=== PATIENT | male | born 1930 | race Caucasian/White ===

== ENCOUNTER → 2016-12-02 | Outpatient (CLI) | payer MEDICARE ==
[~2016-12-02] MED LIST: 'PARAFON FORTE500 M1 PO; ASPIR LOW81 MG PO; ASPIRIN81 M1 PO; CARAFATE1 G1 PO; COENZYME Q-1030 MG PO; COLACE100 MG PO; COLACE100 MG/10 PO; COUMADIN4 M1 PO; DIOVAN HCT 25 M1 TA1 PO; DIOVAN320 MG PO; FLECTOR1.3% TP; FLOMAX0.4 MG PO; HYDROCODONE BIT1 T11 PO; ISOSORBIDE DINI30 MG PO; LISINOPRIL5 MG PO; LOTREL 10 MG-401 CA1 PO; LUTEIN-ZEAXANT1 EACH PO; MULTI VITAMIN W PO; MULTI VITAMINS1 TAB PO; NIFEDIPINE30 MG PO; NIZORAL 2%15 GM PO; PERCOCET 325 MG1 TA3 PO; PREVISION PO; PROTONIX40 MG PO; TENORMIN25 MG PO; VYTORIN 10 MG-21 TAB PO; XARELTO10 PO
== END | disposition home or self-care (01) ==
LOC: LAB 08:46
DX: N18.4 Chronic kidney disease, stage 4 (severe) (principal); D63.1 Anemia in chronic kidney disease; E55.9 Vitamin D deficiency, unspecified

== ENCOUNTER → 2017-01-13 | Outpatient (CLI) | payer MEDICARE ==
[2017-01-13 12:05] LABS: ALBUMIN 3.3 gm/dl (3.1-4.5); BILIRUBIN, TOTAL 0.3 mg/dl (0.2-1.0); POTASSIUM 4.5 mmol/L (3.5-5.1)
== END ==
LOC: LAB 11:13
PROVIDERS: Internal Medicine
DX: Z76.89 Persons encountering health services in other specified circumstances (principal)

== ENCOUNTER 2017-05-15 10:17 | Inpatient (IN) | payer MEDICARE ==
[2017-05-15] VITALS (9 sets, daily range): BP systolic 125–161; BP diastolic 61–104
[~2017-05-15] VITALS: Ht 170.1 cm; Wt 66.7 kg
--- NOTE | ~2017-05-15 | PR ---
[place], [place] PROGRESS NOTE NAME: KERRY BEGUM JR UNIT #: [id number] ROOM: 508 DOCTOR: IVIS IRWIN MD BIRTHDATE: [birth year] DOS: 05/18/2017 PULMONARY FOLLOWUP SUBJECTIVE: The patient has been noted comfortable at this time, using the BiPAP this morning and 40% oxygen, setting of 14/10. OBJECTIVE: VITAL SIGNS: Recorded, shows temperature remains normal, respiratory rate 20, heart rate 70, blood pressure 153/74. Pulse oxygen saturation 40% oxygen with BiPAP was 98% saturation. HEENT: No new changes. NECK: Supple. CARDIOVASCULAR: S1, S2 audible. LUNGS: The patient was noted without any wheezing or crackles at the present time. ABDOMEN: Soft, nontender. LABORATORY DATA: ESR noted as 89, which was mildly elevated. CRP was noted, elevated 17.10. Remaining workup for the connective tissue disorder was pending. IMPRESSION AND PLAN: The patient with recurrent acute severe hypoxic respiratory failure with ground-glass opacity, bilateral pulmonary infiltration vary, differential remains in consideration, which has been treated including for pulmonary infection with the antibiotics and BiPAP. The patient seemed to be noted stable at this time, current ongoing medical illnesses. Antibiotics to be continued for this patient. Possible empirical use of corticosteroids will be considered maybe in the next 24 hours if the finding remains persistent. Obtain PA and lateral chest x-ray to assess progression of the current interstitial lung disease and infiltration. ADDITIONAL TREATMENT: Continue all other supportive care as well. Monitor labs, which has been sent for patient's connective tissue disorder and others. Acute kidney injury has been managed by the Nephrology services as well. [place], [place] PROGRESS NOTE NAME: KERRY BEGUM JR UNIT #: [id number] ROOM: 508 DOCTOR: IVIS IRWIN MD BIRTHDATE: [birth year] IVIS OCHOA MD CM:PNTRANS [id number] IVIS ARGUETA MD 05/19/17 005 interface
--- NOTE | ~2017-05-15 | CON ---
[place], [place] REPORT OF CONSULTATION NAME: KERRY BEGUM JR UNIT #: [id number] ROOM: 508 DOCTOR: MP SANDOVAL MD BIRTHDATE: [birth year] DOS: 05/17/2017 HISTORY OF PRESENT ILLNESS: The patient was consulted for cardiac evaluation for possible hip surgery. This is an 87-year-old elderly patient who has been admitted to the hospital service on 05/15/2017. The patient is unable to give any history. Most of the information is obtained from the chart. He lives at home, fell down at his home, has been found by his and later on found to have significant pain in the right hip area. Oxygen saturation was only 82% on room air. Dr. Zepeda has been consulted. The patient has been currently getting oxygen supplementation. The patient is supposed to have a hip fracture possible. Review of systems cannot be completed because of inability to have a conversation. 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 PAST SURGICAL HISTORY: Pacemaker insertion. FAMILY HISTORY: Unknown. MEDICATIONS: The patient is on atenolol, nifedipine, Lasix, Imdur, Flomax, ferrous sulfate. DRUG ALLERGIES: XARELTO AND PENICILLIN. REVIEW OF SYSTEMS: Unobtainable. PHYSICAL EXAMINATION: VITAL SIGNS: Blood pressure today is 150/70. Paced rhythm. HEENT: Unremarkable. NECK: Supple. No JVD. LUNGS: Clear. HEART: Sounds are regular. NEUROLOGIC: Difficult to assess. LABORATORY DATA: White count was elevated to be 25,000 on 05/15/2017. Creatinine is 1.8. Urine shows more than 100,000 gram-negative bacilli. Chest x-ray, no evidence of acute major process. IMPRESSION: The patient readmitted to the hospital with a closed right hip fracture, fall at home; history of coronary artery permanent pacemaker. RECOMMENDATIONS: We will get an echocardiogram prior to the anticipated surgery. The patient is at higher risk because of the comorbid situation. Continue the beta blockers as ordered and we will followup. [place], [place] REPORT OF CONSULTATION NAME: KERRY BEGUM JR UNIT #: [id number] ROOM: 508 DOCTOR: MP SANDOVAL MD BIRTHDATE: [birth year] MP SANDOVAL MD CM:CONSTR:REPORT OF CONSULTATION 0832 05/17/17 0907 interface
--- NOTE | ~2017-05-15 | CON ---
[place], [place] REPORT OF CONSULTATION NAME: KERRY BEGUM JR UNIT #: [id number] ROOM: 508 DOCTOR: PATY HORVATH MD BIRTHDATE: [birth year] DOS: 05/17/2017 HISTORY OF PRESENT ILLNESS: This is an 87-year-old -[place] man with a history of coronary artery disease. He had a diagnostic heart cath done in November 2015, which demonstrated normal LV systolic function and 20% stenosis of the circumflex and 40% in right coronary artery with an 80% stenosis in the proximal right coronary artery. LAD had mild disease. RCA was little too of complex relation to treat with intervention, therefore was not done. He has a history of atrial fibrillation and also had a pacemaker implanted in 2006. He has hyperlipidemia, essential hypertension, chronic anemia and has had gastric ulcers. He apparently fell at home because of balance problems and sustained a right subcapital fracture. MEDICATIONS: Reviewed and included atenolol, Imdur, lisinopril, nifedipine, Ranexa, ferrous sulfate. History was obtained from the who was present at the time of examination. PHYSICAL EXAMINATION: GENERAL: The patient looks a little pale. He is weak and he is not able to speak very clearly, but does not seem to be confused. VITAL SIGNS: His temperature is normal. Pulse is regular. NECK: JVP is normal. CARDIAC: He is hardly any edema of the lower extremities. LUNGS: Breath sounds are somewhat diminished with crackles in both lungs. ABDOMEN: Supple, nontender. IMPRESSION: This patient with coronary artery disease and history of atrial fibrillation and a pacemaker, had normal left ventricular systolic function. There is no evidence of cardiac decompensation. Coronary artery appear to be quiet. The right femoral head fracture. There is intermediate risk for perioperative cardiac complications for hip surgical procedure. He also has chronic kidney disease. This adds to complications as well. I Thank you for this consult. [place], [place] REPORT OF CONSULTATION NAME: SHY JRKERRY Will UNIT #: [id number] ROOM: 508 DOCTOR: PATY HORVATH MD BIRTHDATE: [birth year] PATY HORVATH MD CM:CONSTR:REPORT OF CONSULTATION 1202 05/19/17 0410 interface
--- NOTE | ~2017-05-15 | PR ---
[place], [place] PROGRESS NOTE NAME: KERRY BEGUM JR [facility] #: [id number] UNIT #: [id number] ROOM: 508 DOCTOR: GABRIELA ARGUETA MD,IVIS BIRTHDATE: [birth year] DOS: 05/17/2017 SUBJECTIVE: The patient was seen and examined on 05/17/2017. He has been currently resting on his bed. Using the oxygen supplementation with the Venturi mask, BiPAP has also been used by the patient yesterday and the last night with oxygen supplementation up to 50 rather 45%. He has been noted essentially awake at this time. Does not have good verbal communication to describe his ongoing symptom. He does not show any acute distress at the present time with shortness of breath with significant tachypnea this morning. OBJECTIVE: VITAL SIGNS: Temperature noted at 100.6 degree Fahrenheit, normal temperature, respiratory rate 18-20, heart rate 71-76, blood pressure 115/50-159/70. Intake 845 and output 385 mL. The pulse oxygen saturation with the Venturi mask with patient and the BiPAP ranging between 91-99% saturation. HEENT: Shows head was atraumatic. Eyes nonicterus. CARDIOVASCULAR: S1, S2 audible. LUNGS: The patient was noted with moderately reduced breath sounds, scattered crackles of the lungs. ABDOMEN: Soft, nontender. EXTREMITIES: Shows mild edema of bilateral lower extremity. LABORATORY DATA: CBC this morning, WBC count 18.7, hemoglobin and hematocrit normal, platelet count was normal. BMP this morning, BUN 53, creatinine 2.52, glucose 138. BUN yesterday noted at 31, creatinine 2.08 in the labs. CBC that was done yesterday showed WBC count 17.3. The CBC was noted about essentially the same. ABG that was done yesterday at 11:15 a.m. noted, pH of 7.48, pCO2 of 25.8, pO2 of 51.8 on 50% oxygen supplementation. CT scan of the chest that I ordered yesterday done without contrast was personally reviewed. The CT scan mediastinal window assessment for the patient was reviewed and it does not show any visible gross lymphadenopathy. Absence of the IV contrast that limits the mediastinal assessment. The parenchymal window assessment was done shows some motion artifact, area of ground glass opacity noted with infiltration, which was present in the left upper lobe lingula subsegment and left lower lobe. Small right pleural fluid was noted. Signaling chronic right spasticity for the patient was noted involving the right lower lobe and part of the right upper lung. IMPRESSION: The patient who has been currently admitted to the hospital. The patient noted progressive acute hypoxic respiratory failure. The differential diagnosis current finding of the CT scan would be considered with the possibility of interstitial edema related to acute progressive kidney injury and congestive heart failure. In addition, possibility of pneumonia cannot be completely excluded. Other reason for the patient's current abnormal opacity in the lungs will be considered for any interstitial lung involvement from connective tissue disorders and similar conditions. PLAN OF MANAGEMENT: The patient has been currently has been rather using the BiPAP intermittently. We will continue stabilize respiratory status with antibiotics. The patient has been ordered just kidney functions will be [place], [place] PROGRESS NOTE NAME: KERRY BEGUM JR UNIT #: [id number] ROOM: 508 DOCTOR: IVIS IRWIN MD BIRTHDATE: [birth year] continued as well. The patient has not been getting the atypical coverage with the antibiotic, which will be ordered. Order the urine for legionella antigen as well as the streptococcal antigen. All the connective tissue work disorder as well and for interstitial lung disease preliminary testing. Acute kidney injury, the patient continued to be assessed and managed by the Nephrology services. Other supportive present therapy for the patient to be continued as well. Monitoring temperature curve as well to determine the code status as well for any intervention if necessary in case of progressive worsening and decline of the respiratory status that could occur. The patient despite use of the BiPAP for potential intubation and mechanical ventilation. Other treatment plan and management as well. Usual care, supportive plan of therapies and management. Thank you for allowing me to participate in the care of this patient. IVIS OCHOA MD CM:PNTRANS [id number] IVIS ARGUETA MD 05/18/17 0019 interface
--- NOTE | ~2017-05-15 | EKG ---
[place], [place] ELECTROCARDIOGRAM REPORT NAME: KERRY BEGUM JR UNIT #: [id number] ROOM: 508 DOCTOR: GABRIELA ARGUETA MD,IVIS BIRTHDATE: [birth year] DOS: The electrocardiogram was done on 05/13/2017 for the patient. IVIS OCHOA MD CM:EKGRPT:ELECTROCARDIOGRAM REPORT [id number] 1604 IVIS ARGUETA MD
--- NOTE | ~2017-05-15 | CON ---
[place], [place] REPORT OF CONSULTATION [facility] [id number] UNIT #: [id number] ROOM: 508 DOCTOR: IVIS IRWIN MD BIRTHDATE: [birth year] DOS: 05/16/2017 PULMONARY CONSULTATION EVALUATION CONSULTATION REQUESTED BY: Hospitalist services. REASON FOR CONSULTATION: Assessment of respiratory failure. HISTORY OF PRESENT ILLNESS: This is an 87-year-old elderly male patient who has been admitted to the hospitalist services on 05/15/2017. The patient unable to give any history. All the history has been obtained essentially from review of his medical record documentation of this hospitalization and previously. The nursing notes were also reviewed as needed. The patient is an 87-year-old white male who lives at home. The patient fell down at his home. He has been found by his later on. The ambulance was called, the patient has been assessed, was complaining of significant pain in the right hip area and bearing some weight on the hip. The patient's oxygen saturation also noted at 82% on room air at rest, but the patient refused to use the oxygen supplementation. He has been brought to the hospital for further workup of the current acute respiratory symptom. The patient has been assessed with the x-rays of the hip, which was not noted adequate x-ray because of limited assessment to exclude fracture of the right femur and subcapital area. The patient has been currently getting oxygen supplementation and using it with nasal cannula. Denies any symptoms of chest pain or hemoptysis. The patient reported no symptoms of cough or any chest trauma. REVIEW OF SYSTEMS: Cannot be adequately completed because of inability to have a conversation and assessment for this patient by me. PAST MEDICAL HISTORY: 1. 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 2. History of essential hypertension. 3. Coronary artery disease and acute cardiac dysrhythmias, with pacemaker insertion. 4. History of stricture of the urinary bladder neck. 5. Past history of coronary artery disease and myocardial infarction. SOCIAL HISTORY: The patient lives at home. He denies any tobacco use, alcohol, or illicit drugs. PAST SURGICAL HISTORY: 1. Cystoscopy. 2. Pacemaker insertion. FAMILY HISTORY: Unknown. HOME MEDICATIONS: Listed as use of atenolol, vitamin D3, Vytorin, ferrous sulfate, Breo Ellipta, Lasix, Imdur, Lutein, nifedipine XL, oxygen supplementation 2 L via nasal cannula, Flomax, and other vitamins. [place], [place] REPORT OF CONSULTATION NAME: KERRY BEGUM JR UNIT #: [id number] ROOM: 508 DOCTOR: GABRIELA ARGUETA MD,[facility] BIRTHDATE: [birth year] DRUG ALLERGIES: 1. XARELTO. 2. PENICILLINS. PHYSICAL EXAMINATION: GENERAL: An 87-year-old elderly male, currently comfortably lying on the bed without any acute major distress. Height 5 feet 7 inches, weight 147 pounds, BMI 23. VITAL SIGNS: Temperature noted as 100.6 degrees Fahrenheit orally at midnight. Otherwise, temperature noted essentially normal. Respiratory rate ranges between 18-28, heart rate 79-83, blood pressure 159/70-125/67. Intake is 922 mL. Pulse oxygen saturation noted on 3 L as 90% saturation. Later, on the Venturi mask on 50%, 90%-91% saturation. HEENT: Shows head was atraumatic. Eyes nonicterus. NECK: Supple. CARDIOVASCULAR: S1, S2 audible. LUNGS: General reduction in the breath sounds in the lungs noted bilaterally. ABDOMEN: Soft and nontender. EXTREMITIES: Without any edema, clubbing, or cyanosis. CENTRAL NERVOUS SYSTEM: Examination could not be performed adequately. SKIN: No lesions or rashes. MUSCULOSKELETAL: No gross deformities. LABORATORY DATA: CBC on 05/15/2017, WBC count 25.9, hemoglobin, hematocrit, and platelet count normal, 88% segmented neutrophils. BMP yesterday, BUN 25, creatinine 1.87, glucose 137. Electrolytes were normal. The PT/PTT done yesterday and normal. X-ray of the hip is limited study, cannot rule out fracture of the femoral neck. CBC this morning, WBC count 17.3. Remaining CBC still remains normal. CMP this morning, BUN 31 and creatinine 2.08. Remaining electrolytes grossly normal. PT/INR remains normal. Urine culture noted greater than 100,000 colony-forming units of Gram-negative bacilli. Chest x-ray 1 view, does not show any acute major abnormalities except chronic elevation of the right hemidiaphragm which is an old finding. IMPRESSION: 1. The patient who has been currently admitted to the hospital noted with acute on chronic hypoxic respiratory failure, exact etiology cannot be determined 2. Leukocytosis may be related to urinary tract infection, other etiology is unclear as well. 3. The patient with history of chronic hypoxic respiratory failure and possibility of pulmonary disease, not described by the patient, but noted with the use of the medication such as Breo Ellipta and short-acting bronchodilators. 4. The patient with history of chronic kidney disease stage 3 to stage 4 with current acute component noted, most likely related to the intravascular volume depletion. PLAN OF MANAGEMENT: For the acute hypoxic respiratory failure, CT scan of the chest would be done without contrast to get more clear delineation of the pulmonary process. Monitor acute kidney injury superimposed with chronic kidney [place], [place] REPORT OF CONSULTATION NAME: KERRY BEGUM JR UNIT #: [id number] ROOM: 508 DOCTOR: GABRIELA ARGUETA MD,IVIS BIRTHDATE: [birth year] disease as well. The troponin and CPK were also noted mildly abnormal, possibility of myocardial infarction should be considered in the differential diagnosis. Other supportive plan of management to be continued as previously. The patient on BiPAP to stabilize the respiratory status. Other supportive therapy, plan of management and care plan. Usual treatment, all other supportive therapies. Make changes in the treatment based on the progression of the illness. Also ordered arterial blood gases to accurately assess the patient for the ventilatory status changes today prior to use of the BiPAP. ABG that was done just on 3 L shows pH of 7.47, pCO2 of 28.8, pO2 of 48.8. The respiratory failure has been noted progressive. Also assess the code status for the patient with the family members, determine the exact code status for further medical management. Consider assessment with Orthopedic service if not done for the patient to rule out current suspected fracture of the right hip. If the CT scan of the chest without contrast remains nonrevealing, certainly VQ scan could be done to rule out pulmonary embolism because of the progressive hypoxia. Cardiology assessment might need to be done for assessment of abnormal troponin with additional workup for possible myocardial infarction. If necessary, suggest Cardiology services. Supportive plan of therapy, care and management. IVIS OCHOA MD CM:CONSTR:REPORT OF CONSULTATION 1041 05/17/17 0150 interface
--- NOTE | 2017-05-15 10:22 | NUR ---
PATIENT'S STATES THAT THE PATIENT WAS OFFERED OXYGEN AT HOME DUE TO THE PATIENT'S PULSE OX RUNNING LOW AND THE PATIENT REFUSED THE OXYGEN AT HOME. ROMARIO SANTOS
--- NOTE | 2017-05-15 10:29 | NUR ---
PATIENT ALSO HAS SEVERAL ABRASION TO THE LEFT LOWER LEG. ROMARIO SANTOS
[2017-05-15 10:58] LABS: HEMOGLOBIN 15.7 g/dl (14.0-18.0); MEAN CORPUSCULAR HGB 30.4 pg (27.0-31.0); MEAN PLATELET VOLUME 10.3 fl (9.6-12.3); PLATELET COUNT AUTOMATED 232 10*3/uL (130-400); RED BLOOD COUNT 5.16 10*6/uL (4.50-5.90); RED CELL DISTRI WIDTH 13.6 % (0-14.5); WHITE BLOOD COUNT 25.9 10*3/uL (4.8-10.8)
[2017-05-15 11:07] LABS: ACT PARTIAL THROMBO TIME 26.3 SECONDS (20.8-31.5)
[2017-05-15 11:09] LABS: CREATININE 1.87 mg/dL (0.70-1.30); POTASSIUM 4.1 mmol/L (3.5-5.1)
[2017-05-15 11:15] LABS: TOTAL CELLS COUNTED 100 #CELLS
[2017-05-15 11:16] LABS: PLATELET SUFFICIENCY NORMAL (NORMAL)
--- NOTE | 2017-05-15 11:32 | NUR ---
PATIENT IS ALERT AND ORIENTED X3, STATES THAT HE IS HAVING PAIN IN THE RIGHT HIP SINCE THEY HAVE COMPLETED THE XRAY, STATES THAT THE PAIN IS SEVERE A 9/10 AT THIS TIME, MADE DR. TORRES AWARE OF THE PATIENT'S PAIN AT THIS TIME, CALL LIGHT IN REACH OF THE PATIENT, CONTINUING TO MONITOR THE PATIENT. ROMARIO SANTOS
[2017-05-15 11:55] LABS: TROPONIN I 0.061 ng/ml (<0.045)
--- NOTE | 2017-05-15 12:09 | NUR ---
PATIENT IS ALERT AND ORIENTED X3, PATIENT IS RESTING IN BED WITH IN THE ROOM, PATIENT STATES THAT HE GOT NO RELIEF FROM THE MEDICATION, MADE DR. TORRES AWARE OF THIS SITUATION. ROMARIO SANTOS
--- NOTE | 2017-05-15 12:25 | NUR ---
A 87, admitted to 5E, under the services of TANESHA Pate DO with a diagnosis of FALL AT HOME, LEUKOCYTOSIS, CKD, CLOSED RIGHT HIP FX. Chief complaint is FALL. Patient arrived via ambulance from ER. Monitor applied. Initial assessment completed. Vital signs taken and recorded. ATNESHA PATE DO notified of admission to the unit. Orders received. See assessment for past medical history, medications and allergies. Patient and/or family oriented to unit. visitation policy reviewed. Clothing/patient valuable form completed. VICKIE MALONE L
--- NOTE | 2017-05-15 12:38 | NUR ---
PATIENT TAKEN TO ROOM 508-1, PLACED ON THE MONITOR AND CARE TRANSFERRED TO NYDIA GREGG RN AND ROMARIO QUILES. ROMARIO SANTOS
[2017-05-15] MEDS ORDERED: CO Q-1030 M1 PO (12:42)
[2017-05-15] MEDS ORDERED: FEOSOL325 MG PO (12:43)
[2017-05-15] MEDS ORDERED: LASIX40 MG PO (12:44)
[2017-05-15] MEDS ORDERED: PRESERVISION A1 EAC2 PO (12:46)
[2017-05-15] MEDS ORDERED: VITAMIN D34000 UNIT PO (12:47)
[2017-05-15] MEDS ORDERED: BREO ELLIPTA 21 EACH INH (12:49)
[2017-05-15] MEDS ORDERED: OXYGEN NAS (12:50)
--- NOTE | 2017-05-15 12:51 | NUR ---
PT'S MED REC UPDATED PER LIST PROVIDED BY PT'S .
--- NOTE | 2017-05-15 13:29 | NUR ---
DR WRIGHT NOTIFIED OF ABRASIONS TO LEFT KNEE. STATES HE WILL PUT ORDERS FOR DRESSING CHANGED IN.
--- NOTE | 2017-05-15 14:46 | NUR ---
CALL PLACED TO , NOTIFIED OF CONSULT FOR SURGICAL CLEARENCE
--- NOTE | 2017-05-15 16:22 | NUR ---
PAIN MEIDCATION EFFECTIVE, RESTING IN BED QUIETLY NO FURTHER C/O PAIN
[2017-05-15 17:16] LABS: ABG BASE EXCESS -0.8 mmol/L (-2.0-2.0); ABG HCO3 21.1 mmol/l (22-26); ABG O2 SATURATION 88.8 % (95-97); ARTERIAL BLOOD GAS PCO2 28.8 mmHg (35-45); ARTERIAL BLOOD GAS PH 7.476 (7.35-7.45); ARTERIAL BLOOD GAS PO2 46.8 mmHg (80-90)
--- NOTE | 2017-05-15 17:30 | NUR ---
NOTIFIED OF PTS ABGS, NEW ORDER TO CONSULT DR. OCHOA
--- NOTE | 2017-05-15 17:45 | NUR ---
50% VM APPLIED. SEE ABG. RN AWARE. RN STATES DR. LAY NOTIFIED AND SAID OK FOR 50% VM. SAT 97%. HR 72.
[2017-05-15 18:11] LABS: BILIRUBIN NEGATIVE (NEGATIVE); BLOOD TRACE-INTACT (NEGATIVE); CLARITY SL CLOUDY (CLEAR); COLOR YELLOW (YELLOW); GLUCOSE NEGATIVE (NEGATIVE); KETONE NEGATIVE (NEGATIVE); LEUKO ESTERASE 2+ (NEGATIVE); NITRITE NEGATIVE (NEGATIVE); SPECIFIC GRAVITY 1.015 (1.005-1.030); UROBILINOGEN 0.2 E.U./dl (0.2-1.0)
[2017-05-15 18:17] LABS: BACTERIA 4+; WBC 51-100 wbc/hpf (0-5)
[2017-05-15 18:18] LABS: EPITHELIAL CELLS 0-2
--- NOTE | 2017-05-15 18:28 | NUR ---
CALL PLACED TO FOR CONSULT, LEFT MESSAGE ON PHONE
--- NOTE | 2017-05-15 18:30 | NUR ---
UNABLE TO CALL FOR CONSULT, MD UNAVAILABLE UNTIL 05/16/17, WILL LET KAYLEE KNOW TO CALL CONSULT ON 05/16/17 WHEN RETURNS
--- NOTE | 2017-05-15 18:30 | NUR ---
DR. OCHOA RETURNED CALL AT THIS TIME AND WAS MADE AWARE OF CONSULT
--- NOTE | 2017-05-15 20:00 | NUR ---
ASSUMED CARE OF PATIENT. ASSESSMENT COMPLETE. RESTING IN BED. O2 INTACT. DENIES FURTHER NEEDS AT THIS TIME. BED ALARM ACTIVATED. CALL LIGHT IN REACH. WILL CONTINUE TO MONITOR.
--- NOTE | 2017-05-15 21:30 | NUR ---
PT RECEIVED MORPHINE 2MG FOR PAIN RATED 8/10 IN THE HIP.
--- NOTE | 2017-05-15 21:54 | NUR ---
PT SEEMS TO BE RESTING WELL, PAIN SEEMS TO BE REDUCED. PT SLEEPING AND NOT AWAKENED. RESPIRATIONS WNL.
--- NOTE | 2017-05-15 23:25 | NUR ---
PT RECEIVED TYLENOL 650 MG AT 2327 FOR A AXILLARY FEVER OF 100.6.
[2017-05-16] VITALS: BP 148/90
--- NOTE | 2017-05-16 01:48 | NUR ---
PT'S TEMP WAS 99.9 FOLLOWING TYLENOL ADMINISTATION.
--- NOTE | 2017-05-16 02:00 | NUR ---
SLEEPING. VENTURI INTACT. NO DISTRESS NOTED. CM INTACT. BED ALARM ON. CALL LIGHT IN REACH. WILL CONTINUE TO MONITOR.
[2017-05-16 06:13] LABS: BASO # 0.1 10*3/uL (0.0-0.1); BASO % 0.3 % (0.0-1.0); EOS # 0.1 10*3/uL (0.0-0.4); EOS % 0.6 % (1.0-4.0); HEMATOCRIT 48.2 % (42.0-52.0); HEMOGLOBIN 15.6 g/dl (14.0-18.0); MEAN CORPUSCULAR HGB 31.4 pg (27.0-31.0); MEAN CORPUSCULAR HGB CONC 32.4 g/dl (33.0-37.0); MEAN PLATELET VOLUME 10.6 fl (9.6-12.3); MONO % 5.6 % (3.0-9.0); NEUT % 86.9 % (47.0-73.0); NUCLEATED RED BLOOD CELL 0.1 % (0.0-0.0); PLATELET COUNT AUTOMATED 168 10*3/uL (130-400); RED BLOOD COUNT 4.97 10*6/uL (4.50-5.90); RED CELL DISTRI WIDTH 14.5 % (0-14.5); WHITE BLOOD COUNT 17.3 10*3/uL (4.8-10.8)
[2017-05-16 06:31] LABS: INTERNATIONAL NORM RATIO 1.1 (2.0-3.5)
[2017-05-16 06:32] LABS: ALBUMIN 2.9 gm/dl (3.1-4.5); CREATININE 2.08 mg/dL (0.70-1.30); MAGNESIUM 2.8 mg/dL (1.5-2.1); PHOSPHOROUS 2.7 mg/dL (2.5-4.9); POTASSIUM 4.9 mmol/L (3.5-5.1); TOTAL PROTEIN 6.4 gm/dL (6.4-8.2)
[2017-05-16 06:38] LABS: THYROID STIM HORMONE (HS) 1.17 uIU/ml (0.358-4.75)
[2017-05-16 08:00] VITALS: BP 159/70
--- NOTE | 2017-05-16 08:24 | NUR ---
DR ALVARADO OFFICE STAFF NOTIFIED OF CONSULT FOR RIGHT FEMORAL NECK FRACTURE
--- NOTE | 2017-05-16 10:40 | NUR ---
PT GIVEN NORCO FOR PAIN R/T RIGHT HIP EXTERNAL ROTATION
[2017-05-16 11:19] LABS: ABG BASE EXCESS -1.8 mmol/L (-2.0-2.0); ABG HCO3 19.4 mmol/l (22-26); ABG O2 SATURATION 89.1 % (95-97); ARTERIAL BLOOD GAS PCO2 25.8 mmHg (35-45); ARTERIAL BLOOD GAS PH 7.489 (7.35-7.45); ARTERIAL BLOOD GAS PO2 51.8 mmHg (80-90)
--- NOTE | 2017-05-16 11:37 | NUR ---
ABG'S RETRIEVED BY RESPIRATORY. PT TRANSPORTED TO CT.
--- NOTE | 2017-05-16 11:59 | NUR ---
NORCO INEFFECTIVE TO RELIEVE PAIN, PT RESTLESS AND VISIBLY IN PAIN, ADMINISTERED MORPHINE
[2017-05-16 12:00] VITALS: BP 130/60
--- NOTE | 2017-05-16 13:26 | NUR ---
PATIENT ON BIPAP SETTINGS: 07/01 BACK UP 8, 55% FIO2.
--- NOTE | 2017-05-16 14:40 | NUR ---
PRN IV MORPHINE WAS EFFECTIVE FOR PAIN; NO DISTRESS NOTED; VISITING AT BEDSIDE.
[2017-05-16 16:00] VITALS: BP 129/64
--- NOTE | 2017-05-16 16:49 | NUR ---
PATIENT IN PAIN, GRIMACING, NODS YES WHEN ASKED IF IN PAIN, BIPAP IS IN PLACE. MEDICATED WITH PRN IV MORPHINE FOR SEVERE PAIN (RIGHT HIP IS FRACTURED).
--- NOTE | 2017-05-16 17:40 | NUR ---
PRN IV MORPHINE SOMEWHAT EFFECTIVE, PER PATIENT.
[2017-05-16 20:00] VITALS: BP 138/64
--- NOTE | 2017-05-16 20:00 | NUR ---
ASSUMED CARE OF PATIENT. ASSESSMENT COMPLETE. RESTING IN BED. BIPAP INTACT. CALL LIGHT IN REACH. WILL CONTINUE TO MONITOR.
--- NOTE | 2017-05-16 21:03 | NUR ---
BBS DIMINISHED CLEAR..PT IN NO DISTRESS PT ASLEEP SA NOT INDICATED AT THIS TIME
--- NOTE | 2017-05-16 23:22 | NUR ---
PT RECEIVED MORPHINE 2MG FOR PAIN IN HIP RATED 9/10.
[2017-05-17] VITALS: BP 123/55
--- NOTE | 2017-05-17 | NUR ---
PT IS RESTING COMFORTABLY AFTER RECEIVING MORPHINE FOR PAIN.
--- NOTE | 2017-05-17 02:00 | NUR ---
SLEEPING. BIPAP INTACT, NO DISTRESS NOTED. CALL LIGHT IN REACH. WILL CONTINUE TO MONITOR.
[2017-05-17 07:26] LABS: BASO % 0.2 % (0.0-1.0); EOS # 0.1 10*3/uL (0.0-0.4); EOS % 0.5 % (1.0-4.0); HEMATOCRIT 44.8 % (42.0-52.0); HEMOGLOBIN 14.1 g/dl (14.0-18.0); LYMPH # 1.1 10*3/uL (1.3-4.4); LYMPH % 5.8 % (27.0-41.0); MEAN CELL VOLUME 97.6 fl (80.0-94.0); MEAN CORPUSCULAR HGB 30.7 pg (27.0-31.0); MEAN CORPUSCULAR HGB CONC 31.5 g/dl (33.0-37.0); MEAN PLATELET VOLUME 11.1 fl (9.6-12.3); MONO # 1.3 10*3/uL (0.1-1.0); MONO % 6.7 % (3.0-9.0); NEUT # 16.1 10*3/uL (2.3-7.9); NEUT % 86.1 % (47.0-73.0); PLATELET COUNT AUTOMATED 157 10*3/uL (130-400); RED BLOOD COUNT 4.59 10*6/uL (4.50-5.90); RED CELL DISTRI WIDTH 14.6 % (0-14.5); WHITE BLOOD COUNT 18.7 10*3/uL (4.8-10.8)
[2017-05-17 07:47] LABS: CREATININE 2.52 mg/dL (0.70-1.30); POTASSIUM 4.8 mmol/L (3.5-5.1)
[2017-05-17 08:00] VITALS: BP 115/50
--- NOTE | 2017-05-17 09:00 | NUR ---
case management attemptes to visit with patient, patient was too ill at this time to talk, will talk with patient's family regarding discharge plans
--- NOTE | 2017-05-17 10:06 | NUR ---
PATIENT MEDICATED WITH MORPHINE FOR PAIN R LEG. PATIENT IS UNABLE TO RATE PAIN.
--- NOTE | 2017-05-17 10:32 | NUR ---
[employer] order placed with [facility]
--- NOTE | 2017-05-17 11:00 | NUR ---
PATIENT RESTING QUIETLY.
--- NOTE | 2017-05-17 11:00 | NUR ---
SPOKE WITH THIS MORNING SHE DOES NOT WISH FOR PATIENT TO HAVE ORAL MEDICATION. SHE IS CONCERNED THAT HE WILL CHOKE.
[2017-05-17 12:00] VITALS: BP 135/61
--- NOTE | 2017-05-17 12:21 | NUR ---
SHY BELTRANKERRY Will [id number] Please refer to the physician's history and physical for past medical history, comorbid conditions, and allergies. Diagnosis: FALL AT HOME LEUKOCYTOSIS CKD CLOSED R HIP FX Tan Score: 14,LOW OR NO RISK WOUND DESCRIPTIONS: Location of the wound: left knee Type of wound: skin tear Thickness: Partial Size: 1.0cm x 0.6cm x 0.1cm Tunneling: none Undermining: none Sinus Tract: none Presence of Exudate: Serosanguineous Amount: Light Color: Red Odor: None Periwound Skin Appearance: Normal Wound edges: approximated Pain (associated with wound): tender to touch How does patient state this happened? pt unable to state how this happened Location of the wound: left lower leg proximal Type of wound: skin tear Thickness: Partial Size: 4.3cm x 1.9cm x 0.1cm Tunneling: none Undermining: none Sinus Tract: none Presence of Exudate: Serosanguineous Amount: Light Color: Red Odor: None Periwound Skin Appearance: Normal Wound edges: approximated Pain (associated with wound): tender to touch How does patient state this happened? pt unable to state how this happened Location of the wound: left lower leg distal Type of wound: skin tear Thickness: Partial Size: 1.8cm x 3.0cm x 0.1cm Tunneling: none Undermining: none Sinus Tract: none Presence of Exudate: Serosanguineous Amount: Light Color: Red Odor: None Periwound Skin Appearance: Normal Wound edges: approximated Pain (associated with wound): tender to touch How does patient state this happened? unable to state how this happened Surface the patient is resting on: Position Pro SKIN PREVENTION RECOMMENDATION: 1. Pressure redistribution support surface as appropriate 2. Elevate heels 3. Remove boots/TEDS every shift and reapply 4. Head of bed 30 degrees as tolerated 5. Assess nutrition and hydration 6. Manage moisture 7. Avoid the use of containment devices while in bed 8. Use absorptive products on surfaces limit layers of linens on bed 9. Turn and reposition every 1-2 hours in bed and every 1 hour in chair as tolerated 10. Weight shifts every 15 minutes while up in chair 11. Offloading with pillows or device to keep heels elevated off bed 12. Monitor skin at least every shift 13. Inspect under medical devices twice a day WOUND TREATMENT RECOMMENDATIONS: heel raiser pro boots while in bed Would also recommend dolphin bed due to patient immobility because of the fx hip increase pain. spoke with nursing program chair to order bed once order was obtained by Dr. Jasmine
--- NOTE | 2017-05-17 12:27 | NUR ---
Spoke with Dr. Almonte regarding wound care recommendations.
--- NOTE | 2017-05-17 12:31 | NUR ---
SPOKE TO DR. TADEO REGARDING 'S CONCERN FOR HIS DIFFICULTY SWALLOWING AND THE POSSIBILITY OF HOSPICE.
--- NOTE | 2017-05-17 13:33 | NUR ---
SPEECH PATHOLOGY Orders for dysphagia evaluation received and chart review completed. Patient was unresponsive in bed, on bipap and did not arouse to stimulation presented. His was present and reported he has been in this state all morning. Due to severity of condition, assessment of swallowing was unable to be completed at this time. Will attempt again at a later time. This was discussed with patient's spouse who verbalized understanding and agreement. Thank you for this referral. COMFORT JETER [facility]-DOUBLE BACK OPERATOR
--- NOTE | 2017-05-17 15:10 | NUR ---
Received order for [facility]. contacted Valorie in admissions at [facility] and faxed referral. Gave her the phone number for the 5th floor and asked her to call after 3:30 with any questions.
[2017-05-17 16:00] VITALS: BP 146/70
--- NOTE | 2017-05-17 16:14 | NUR ---
PATIENT MOANING AT TIMES. MEDICATED WITH MORPHINE FOR PAIN.
--- NOTE | 2017-05-17 16:17 | NUR ---
HOSPICE TO COME TOMORROW MORNING TO MEET WITH AND FAMILY. THEY WILL BE IN AROUND 10-10:30 AM.
--- NOTE | 2017-05-17 17:08 | NUR ---
PATIENT RESTING QUIETLY.
--- NOTE | 2017-05-17 18:34 | NUR ---
PT WAS ORDERED AN ABG AND THE REFUSED
[2017-05-17 20:00] VITALS: BP 132/52
--- NOTE | 2017-05-17 20:00 | NUR ---
PT POX 88% ON 50% VENTURI MASK. PLACED ON BIPAP AT THIS TIME
--- NOTE | 2017-05-17 20:30 | NUR ---
PT RECEIVED MORPHINE FOR SEVERE PAIN. RATED 9/10, EXACERBATED BY MOVEMENT. RN COMFORT MEASURES USED WELL.
--- NOTE | 2017-05-17 21:44 | NUR ---
PT IS RESTING MORE COMFORTABLY POST MORPHINE ADMINISTATION, RESPIRATIONS STEADY.
--- NOTE | 2017-05-18 01:28 | NUR ---
PT RECEIVED MORPHINE FOR PAIN RATED 9/10, AND PRIOR TO TURNING PT WAS REPOSITIONED ONTO LEFT WITH WEDGE AND PILLOW UNDER RIGHT TO ALLEVIATE PRESSURE ON RIGHT HIP. NURSE VIEWED PT'S COCCYX AND DID NOT SEE ANY OPEN AREAS. MIMIMAL REDNESS, BLANCHABLE.
--- NOTE | 2017-05-18 02:00 | NUR ---
PT RESTING COMFORTABLY. PAIN SEEMS TO BE CONTROLLED AFTER MORPHINE ADMINISTRATION.
--- NOTE | 2017-05-18 05:45 | NUR ---
PT RECEIVED MORPHINE FOR SEVERE PAIN RATED 9/10.
--- NOTE | 2017-05-18 05:55 | NUR ---
PT RECEIVED ATIVAN FOR ANXIETY. HE IS VERY RESTLESS AND AGITATED THIS MORNING.
--- NOTE | 2017-05-18 06:49 | NUR ---
PT SEEMS TO BE MORE COMFORTABLE NOW. RESTING COMFORTABLY.
--- NOTE | 2017-05-18 06:50 | NUR ---
PT SEEMS TO BE MORE CALM NOW. RESTING COMFORTABLY.
[2017-05-18 08:00] VITALS: BP 154/62
[2017-05-18 08:09] LABS: RHEUMATOID ARTHRITIS FACTOR 19.7 IU/mL (0.0-13.9)
--- NOTE | 2017-05-18 09:40 | NUR ---
SPEECH PATHOLOGY Patient remains unable to participate in swallowing assessment due to poor medical status. This morning he was on Bi-pap and restless in bed. He had been given Ativan earlier this morning. Will continue to monitor patient. COMFORT JETER MS [facility] LASER OPERATOR
--- NOTE | 2017-05-18 09:52 | NUR ---
PATIENT MEDICATED WITH ATIVAN IV AND MORPHINE IV. PATIENT'S RESPIRATIONS LABORED AND MOANS WHEN TOUCHED. HOSPICE CALLED AND STATED THAT THEY WOULD CALL ADMISSION NURSE TO NOTIFY HER TO COME BEFORE 10:30. NOTIFIED AND STATED SHE WOULD COME IN TO HOSPITAL NOW.
[2017-05-18 10:04] LABS: IMMUNOGLOBULIN IgE 002170 59 IU/mL (0-100)
--- NOTE | 2017-05-18 11:00 | NUR ---
AND HOSPICE AT THE BEDSIDE. DR. COTA NOTIFIED.
--- NOTE | 2017-05-18 11:30 | NUR ---
PATIENT'S CODE STATUS CHANGED TO DNRCC. AT THE BEDSIDE.
[2017-05-18 12:00] VITALS: BP 153/74
--- NOTE | 2017-05-18 13:46 | NUR ---
PATIENT DISCHARGED TO BE READMITTED UNDER HOSPICE.
[2017-05-18 16:11] LABS: ALDOLASE 002030 10.2 U/L (3.3-10.3); ANGIOTENSIN-CONVERTING ENZYME 25 U/L (14-82)
[2017-05-18 17:06] LABS: ATYPICAL PANCA <1:20 titer (Neg:<1:20); CYTOPLASMIC (C-ANCA) <1:20 titer (Neg:<1:20); PERINUCLEAR (P-ANCA) <1:20 titer (Neg:<1:20)
[2017-05-19 00:03] LABS: IGG SUBCLASS 1 325 mg/dL (248-810); IGG SUBCLASS 2 148 mg/dL (130-555); IGG SUBCLASS 3 24 mg/dL (15-102); IGG SUBCLASS 4 44 mg/dL (2-96)
[2017-05-19 15:08] LABS: LEGIONELLA URINARY ANTIGEN Negative (Negative)
[2017-05-19 15:08] LABS: LEGIONELLA URINARY ANTIGEN Negative (Negative)
== END 2017-05-18 13:25 | disposition hospice, home (50) | DRG 871 ==
LOC: ED 10:17 → 5E 11:34 → EDHOLD 11:34 → 5E 11:46
PROVIDERS: Emergency Medicine; Internal Medicine; Internal Medicine Critical Care Medicine; Student in an Organized Health Care Education/Training Program; ADMIT Internal Medicine
PROC: 5A09357 Assistance with Respiratory Ventilation, Less than 24 Consecutive Hours, Continuous Positive Airway Pressure (ICD-10-PCS; principal; 2017-05-16)
PROC: 5A09357 Assistance with Respiratory Ventilation, Less than 24 Consecutive Hours, Continuous Positive Airway Pressure (ICD-10-PCS; 2017-05-17)
PROC: 5A09357 Assistance with Respiratory Ventilation, Less than 24 Consecutive Hours, Continuous Positive Airway Pressure (ICD-10-PCS; 2017-05-18)
DX: A41.9 Sepsis, unspecified organism (principal); N17.0 Acute kidney failure with tubular necrosis; J96.21 Acute and chronic respiratory failure with hypoxia; J18.9 Pneumonia, unspecified organism; E44.0 Moderate protein-calorie malnutrition; I12.0 Hypertensive chronic kidney disease with stage 5 chronic kidney disease or end stage renal disease; S72.011A Unspecified intracapsular fracture of right femur, initial encounter for closed fracture; E87.8 Other disorders of electrolyte and fluid balance, not elsewhere classified; I48.91 Unspecified atrial fibrillation; N18.6 End stage renal disease; N39.0 Urinary tract infection, site not specified; D75.89 Other specified diseases of blood and blood-forming organs; T79.6XXA Traumatic ischemia of muscle, initial encounter; Z99.81 Dependence on supplemental oxygen; I25.10 Atherosclerotic heart disease of native coronary artery without angina pectoris; N32.0 Bladder-neck obstruction; E55.9 Vitamin D deficiency, unspecified; Z51.5 Encounter for palliative care; R65.20 Severe sepsis without septic shock; B96.20 Unspecified Escherichia coli [E. coli] as the cause of diseases classified elsewhere; Z96.661 Presence of right artificial ankle joint; Z66 Do not resuscitate; Z88.0 Allergy status to penicillin; Z88.8 Allergy status to other drugs, medicaments and biological substances; Z87.440 Personal history of urinary (tract) infections; Z90.49 Acquired absence of other specified parts of digestive tract; Z91.81 History of falling; Z98.42 Cataract extraction status, left eye; I25.2 Old myocardial infarction; Z87.81 Personal history of (healed) traumatic fracture; Z79.899 Other long term (current) drug therapy; Z68.23 Body mass index [BMI] 23.0-23.9, adult; Z53.20 Procedure and treatment not carried out because of patient's decision for unspecified reasons; W18.39XA Other fall on same level, initial encounter; Y93.89 Activity, other specified; Y92.098 Other place in other non-institutional residence as the place of occurrence of the external cause; Y99.8 Other external cause status

== ENCOUNTER 2017-05-18 13:54 | Inpatient (IN) | payer OTHER, MEDICARE ==
[~2017-05-18] VITALS: Ht 170.2 cm; Wt 66.7 kg
--- NOTE | ~2017-05-18 | EKG ---
[place], [place] ELECTROCARDIOGRAM REPORT NAME: KERRY BEGUM JR UNIT #: [id number] ROOM: 508 DOCTOR: GABRIELA ARGUETA MD,IVIS BIRTHDATE: [birth year] DOS: 05/18/2017 Echocardiogram done 05/13/2017 at 11:20 a.m. The EKG for the patient shows paced rhythm with heart rate 85 beats per minute. IVIS OCHOA MD CM:EKGRPT:ELECTROCARDIOGRAM REPORT [id number] IVIS ARGUETA MD
[~2017-05-18 13:54] MED LIST changes: +BREO ELLIPTA 21 EACH INH; +CO Q-1030 M1 PO; +FEOSOL325 MG PO; +LASIX40 MG PO; +OXYGEN NAS; +PRESERVISION A1 EAC2 PO; +VITAMIN D34000 UNIT PO
--- NOTE | 2017-05-18 14:09 | NUR ---
Time: 1409 A 87 year old MALE admitted [facility] . RAMIRO BLANCAS
--- NOTE | 2017-05-18 14:25 | NUR ---
FAMILY AT THE BEDSIDE.
--- NOTE | 2017-05-18 15:06 | NUR ---
PATIENT MOANING IN PAIN. MEDICATED WITH ATIVAN 1 MG PO AND MORPHINE 5 MG SL. FAMILY AT THE BEDSIDE.
--- NOTE | 2017-05-18 16:00 | NUR ---
PATIENT CONTINUES TO MOAN AT TIMES. MEDICATED WITH MORPHINE 20MG SL.
--- NOTE | 2017-05-18 17:07 | NUR ---
CONTINUES TO MOAN AT TIMES AND BE RESTLESS. MEDICATED WITH MORPHINE SL AND ATIVAN SL.
--- NOTE | 2017-05-18 18:00 | NUR ---
PATIENT RESTING QUIETLY AT PRESENT.
--- NOTE | 2017-05-18 18:29 | NUR ---
FAMILY AT THE BEDSIDE.
--- NOTE | 2017-05-18 18:49 | NUR ---
PATIENT MOANING AND RESTLESS. MEDICATED WITH ATIVAN AND MORPHINE. FAMILY AT THE BEDSIDE.
--- NOTE | 2017-05-18 20:01 | NUR ---
24 HR chart check completed.
--- NOTE | 2017-05-18 20:22 | NUR ---
FAMILY AT BEDSIDE. NO SIGNS OF DISTRESS OR PAIN.
--- NOTE | 2017-05-18 20:45 | NUR ---
NON-REBREATHER APPLIED. PATIENT WAS 77% ON 3L NASAL CANNULA. CURRENTLY 92% ON NON-REBREATHER.
--- NOTE | 2017-05-18 22:50 | NUR ---
MEDICATED WITH MORPHINE ORDERED FOR PAIN. PATIENT IS GRIMACING. MOANING WITH ANY TOUCH. RESPIRATIONS ARE LABORED IN THE 30'S. SPO2 93% ON NON-REBREATHER MASK.
--- NOTE | 2017-05-18 23:50 | NUR ---
PATIENT APPEARS TO BE MORE COMFORTABLE. RESPIRATIONS CONTINUE TO BE LABORED. PATIENT IS ASLEEP. MORPHINE EFFECTIVE. WILL CONTINUE TO MONITOR FOR PAIN.
--- NOTE | 2017-05-19 02:36 | NUR ---
MORPHINE GIVEN FOR PAIN. PATIENT MOANS WITH MINIMAL MOVEMENT. USE OF ACCESSORY MUSCLES NOT. RESPIRATIONS IN THE 30'S. SPO2 84% WITH NON-REBREATER.
--- NOTE | 2017-05-19 03:36 | NUR ---
PATIENT IS ASLEEP. CONTINUES TO USE ACCESSORY MUSCLES WHILE BREATHING. PATIENT IS NOT RESPONDING TO TOUCH. NO SIGNS OF PAIN. MORPHINE EFFECTIVE.
--- NOTE | 2017-05-19 09:03 | NUR ---
Medicated with morphine sl per prn order for s/s of pain and tachypnea. Respirations 28. Hospice nurse Jewels in and saw pt.
--- NOTE | 2017-05-19 11:24 | NUR ---
Medicated with morphine po per prn order for s/s of pain.
--- NOTE | 2017-05-19 12:00 | NUR ---
at bedside states that her seems more comfortable.
--- NOTE | 2017-05-19 15:14 | NUR ---
Morphine Sl given per prn order for s/s of pain including tachypnea and moaning with palpation. Pt also given atropine gtts after morphine given for secreations.
--- NOTE | 2017-05-19 16:00 | NUR ---
Pt appears more comfortable.
--- NOTE | 2017-05-19 23:00 | NUR ---
RESTING IN BED WITH HOB. NONBREATHER INTACT AT 15 LITERS. PULE OX 94%. SON PRESENT IN ROOM. PT.'S CONDITION REMANIS POOR.
--- NOTE | 2017-05-20 02:00 | NUR ---
RESTING IN BED WITH EYES CLOSED. CONDITION REMAINS POOR. SON PRESENT IN ROOM.
--- NOTE | 2017-05-20 04:00 | NUR ---
RESTING IN BED WITH EYES CLOSED; NONREBREATHER INTACT. RESPIRATIONS LABORED. SON PRESENT IN ROOM.
--- NOTE | 2017-05-20 06:00 | NUR ---
RESTING IN BED WITH HOB ELEVATED. NONREBREATHER REMAINS INTACT. CONDITION REMAINS POOR. SON PRESENT IN ROOM.
--- NOTE | 2017-05-20 09:30 | NUR ---
HOSPICE IN TO SEE PT. PT WINCING IN PAIN. ADMINISTERED PO MORPHINE [address] TADEO IN TO SEE PT. PRN MORPHINE NOW SCHEDULED. WILL MONITOR FOR EFFECTIVENESS.
--- NOTE | 2017-05-20 10:41 | NUR ---
PER [facility] RN RECOMMENDATION MADE PER DR VALDOVINOS FOR PO MORPHINE 10MG Q4H AND PO MORPHINE 10MG Q4H PRN. DR TADEO NOTIFIED. NO NEW ORDERS.
--- NOTE | 2017-05-20 11:00 | NUR ---
PT RESTING COMFORTABLY WITH NO DISTRESS NOTED. FAMILY AT THE BEDSIDE
--- NOTE | 2017-05-20 13:20 | NUR ---
PTS RESPIRATIONS 31 PER MINUTE. ADMINISTERED SL MORPHINE PER ORDER. WILL MONITOR FOR EFFECTIVENESS. FAMILY AT BEDSIDE
--- NOTE | 2017-05-20 14:15 | NUR ---
PT RESTING COMFORTABLY. RESPS REMAIN ELEVATED AT 32 PER MINUTE. HR 84 BPM. AT THE BEDSIDE.
--- NOTE | 2017-05-20 16:05 | NUR ---
PTS HR 164 BPM, RESPS 32 PER MINUTE. ADMINISTERED SL MORPHINE PER ORDER. WILL MONITOR FOR EFFECTIVENESS. FAMILY AT BEDSIDE
--- NOTE | 2017-05-20 19:05 | NUR ---
PATIENT PASSED 184. ABSENT OF ALL VITAL SIGNS. AND SON AT THE BEDSIDE. DR REEDER NOTIFIED 185. NURSING PAINT SUPERVISOR LEXI BEGUM NOTIFIED 185. [facility] NOTIFIED 185. [facility] CALLED 185. BODY CLEARED TO BE RELEASED TO [facility].
--- NOTE | 2017-05-20 19:30 | NUR ---
SPOKE TO CRISTOFER FROM [facility] REGARDING PATIENT PASSING. EXPLAINED THAT PER [facility] WAS TO BE NOTIFIED AND THEY LEFT. BODY RELEASED PER DR SAKINA REEDER DO.
== END 2017-05-20 18:44 | disposition expired | DRG 871 ==
LOC: 5E 13:54
PROVIDERS: ADMIT Internal Medicine
DX: A41.9 Sepsis, unspecified organism (principal); N17.0 Acute kidney failure with tubular necrosis; J96.01 Acute respiratory failure with hypoxia; S72.001A Fracture of unspecified part of neck of right femur, initial encounter for closed fracture; J18.9 Pneumonia, unspecified organism; D75.89 Other specified diseases of blood and blood-forming organs; M62.82 Rhabdomyolysis; N18.3 Chronic kidney disease, stage 3 (moderate); T79.6XXA Traumatic ischemia of muscle, initial encounter; N39.0 Urinary tract infection, site not specified; R65.20 Severe sepsis without septic shock; Z51.5 Encounter for palliative care; I25.10 Atherosclerotic heart disease of native coronary artery without angina pectoris; W18.39XA Other fall on same level, initial encounter; N32.0 Bladder-neck obstruction; Z95.0 Presence of cardiac pacemaker; I25.2 Old myocardial infarction; Z88.0 Allergy status to penicillin; Z88.8 Allergy status to other drugs, medicaments and biological substances; Z79.899 Other long term (current) drug therapy; Z91.81 History of falling; Y93.89 Activity, other specified; Y92.89 Other specified places as the place of occurrence of the external cause; Y99.8 Other external cause status